=== PATIENT | female | born 1965 | race Native Hawaiian/Other Pacific Islander ===

== ENCOUNTER 2020-10-20 02:38 | Emergency (ER) | payer OTHER ==
[~2020-10-20] VITALS: Ht 152.4 cm; Wt 69.4 kg
[2020-10-20 03:26] LABS: PLATELET COUNT 239 K/uL (152-353)
[2020-10-20 03:36] LABS: POTASSIUM 4.1 mmol/L (3.6-5.2)
[2020-10-20 04:19] VITALS: BP 145/118; TEMP 98.7
[2020-10-20] MEDS ORDERED: TYLENOL325 MG PO (05:45)
[2020-10-20] MEDS ORDERED: ALPR0.5T24 PO (05:47)
[2020-10-20] MEDS ORDERED: ASCO500T18 PO (05:49)
[2020-10-20] MEDS ORDERED: LIPITOR10 MG PO (05:52)
[2020-10-20] MEDS ORDERED: D325 MCG PO (05:53)
[2020-10-20] MEDS ORDERED: DICLOFENAC SODIUM1 % TOP (05:56)
[2020-10-20] MEDS ORDERED: NEURONTIN 100M100 MG PO (05:58)
[2020-10-20] MEDS ORDERED: MOTRIN IB200 M1 PO (06:02)
[2020-10-20] MEDS ORDERED: LACTULOSE10 GM/15 M PO (06:04)
[2020-10-20] MEDS ORDERED: LAMICTAL200 MG PO (06:05)
[2020-10-20] MEDS ORDERED: KEPPRA1000 MG PO (06:06)
[2020-10-20] MEDS ORDERED: MELATONIN3 MG PO (06:08)
[2020-10-20] MEDS ORDERED: TRILEPTAL300 MG PO (06:09)
[2020-10-20] MEDS ORDERED: [UNRECOGNIZED DRUG - OTHER] PO (06:12)
[2020-10-20] MEDS ORDERED: PROTONIX PO (06:12)
[2020-10-20] MEDS ORDERED: ROPINIROLE0.5 MG PO (06:14)
[2020-10-20] MEDS ORDERED: TOVIAZ PO (06:15)
[2020-10-20] MEDS ORDERED: ZIPRASIDONE HCL80 MG PO (06:17)
[2020-10-20] MEDS ORDERED: ONDA4TAB3 PO (06:18)
[2020-10-20] MEDS ORDERED: CETI10TA PO (06:19)
[2020-10-25] MEDS ORDERED: OLANZAPINE5 MG PO (10:29)
== END 2020-10-20 04:21 | disposition still patient (30) ==
LOC: ED 02:38
PROVIDERS: Emergency Medicine Emergency Medical Services
DX: R46.89 Other symptoms and signs involving appearance and behavior (principal); Z11.59 Encounter for screening for other viral diseases; Z04.6 Encounter for general psychiatric examination, requested by authority
CPT/HCPCS: 36415; 80053; 81000; 85027; 87635; 93005; 99283; U0003